=== PATIENT | female | born 1960 | race American Indian/Alaskan Native ===

== ENCOUNTER 2017-12-17 10:16 | Emergency (ER) | payer MEDICAID ==
[2017-12-17 10:22] VITALS: BMI 32.1
--- NOTE | 2017-12-17 11:09 | ED PDOC ---
HPI: Female Pain Time Seen by Provider: 12/17/17 10:27 Chief Complaint (Nursing): Abdominal Pain Chief Complaint (Provider): Right flank pain, urinary symptoms History Per: Patient History/Exam Limitations: no limitations Onset/Duration Of Symptoms: Days Current Symptoms Are (Timing): Still Present Quality Of Discomfort: "Pain" Associated Symptoms: Back Pain (radiating from flank), Urinary Symptoms Additional Complaint(s): 57yo female with history of hepatitis C, alcoholic liver cirrhosis, HIV ( compliant with mediations), presents to ED with complaints of right sided flank pain for the past 2 days. She states the pain radiates to her back, is constant and associated with frequency and dysuria. She denies any fever, chills, vomiting, diarrhea, hematuria. She has been taking Advil for her symptoms with mild relief. PCP: Pinky Hall Abnormal Vaginal Bleeding: No Past Medical History Reviewed: Historical Data, Nursing Documentation, Vital Signs Vital Signs: Last Vital Signs Temp 97.3 F L 12/17/17 10:21 Pulse 85 12/17/17 10:21 Resp 16 12/17/17 10:21 BP 154/92 H 12/17/17 10:21 Pulse Ox 97 12/17/17 10:21 - Medical History PMH: Anxiety, Asthma (taking inhalers), Bronchitis, COPD, Depression, HIV, HTN, Pneumonia, Schizophrenia Denies: Diabetes, Hepatitis, Chronic Kidney Disease, Seizures, Sexually Transmitted Disease - Surgical History Surgical History: - Family History Family History: States: Unknown Family Hx - Immunization History Hx Tetanus Toxoid Vaccination: No Hx Influenza Vaccination: No Hx Pneumococcal Vaccination: No - Home Medications Home Medications: Ambulatory Orders Medication Instructions Recorded Paliperidone Palmitate [Invega 156 mg INJ Q30D 04/03/15 Sustenna] Benztropine [Cogentin] 1 mg PO BID #60 tab 04/20/15 Darunavir [Prezista] 800 mg PO DAILY #30 tab 04/20/15 Hydrochlorothiazide [HCTZ] 25 mg PO DAILY #30 tablet 04/20/15 Lisinopril [Zestril] 40 mg PO DAILY #30 tab 04/20/15 Mirtazapine [Remeron] 15 mg PO HS #30 tab 04/20/15 QUEtiapine [SEROquel] 50 mg PO DAILY #0 tab 04/20/15 QUEtiapine [SEROquel] 150 mg PO HS #120 tab 04/20/15 Raltegravir Potassium [Isentress] 400 mg PO BID #60 tab 04/20/15 Ritonavir [Norvir] 100 mg PO DAILY #30 tab 04/20/15 Salmeterol Xinafoate/Fluticaso 2 puff IH RBID #0 inhaler 04/20/15 [Advair Hfa 230-21] cloNIDine [Catapres] 0.2 mg PO BID #60 tab 04/20/15 hydrALAZINE [Apresoline] 10 mg PO TID #90 tab 04/20/15 Ciprofloxacin HCl [Cipro] 500 mg PO BID #14 tablet 12/17/17 - Allergies Allergies/Adverse Reactions: Allergies Allergy/AdvReac Type Severity Reaction Status Date / Time crab Allergy SWELLING Verified 12/17/17 10:32 Review of Systems ROS Statement: Except As Marked, All Systems Reviewed And Found Negative Constitutional: Negative for: Fever, Chills Gastrointestinal: Positive for: Abdominal Pain (right flank pain). Negative for : Nausea, Vomiting, Diarrhea Genitourinary Female: Positive for: Dysuria, Frequency. Negative for: Hematuria Physical Exam - Reviewed Nursing Documentation Reviewed: Yes Vital Signs Reviewed: Yes - Physical Exam Appears: Positive for: Non-toxic, No Acute Distress Head Exam: Positive for: ATRAUMATIC, NORMAL INSPECTION, NORMOCEPHALIC Skin: Positive for: Normal Color Eye Exam: Positive for: Normal appearance Neck: Positive for: Supple Cardiovascular/Chest: Positive for: Regular Rate, Rhythm Respiratory: Positive for: Normal Breath Sounds. Negative for: Wheezing Gastrointestinal/Abdominal: Positive for: Normal Exam, Soft. Negative for: Tenderness Back: Positive for: Normal Inspection. Negative for: R CVA Tenderness Extremity: Positive for: Normal ROM. Negative for: Deformity Neurologic/Psych: Positive for: Alert, Oriented. Negative for: Motor/Sensory Deficits - Laboratory Results Result Diagrams: 12/17/17 11:10 12/17/17 12:54 - ECG O2 Sat by Pulse Oximetry: 97 (RA) Pulse Ox Interpretation: Normal - Progress Re-evaluation Time: 14:30 Condition: Re-examined, Improved Medical Decision Making Medical Decision Making: Impression: Flank pain with dysuria Differential: UTI, Pyelonephritis, kidney stones; other conditions considered but not listed Plan: -- Labs -- Urinalysis -- Toradol 30 mg IV -- CT Adomen & Pelvis with IV Contrast Time: 1300 CT Abdomen and Pelvis FINDINGS: LOWER THORAX: Evaluation of the lung bases reveals evidence of mild subsegmental atelectasis or scarring at the left lung base and a small amount at the right lung base. Stable calcified right subpleural pulmonary granuloma is identified in the right lower lobe. No pleural effusion is seen. Heart is enlarged. Distal esophagus is unremarkable except for small hiatal hernia. Visualized stomach is within normal limits. LIVER: Noncontrast images of the liver show no evidence of focal liver mass or intrahepatic ductal dilatation. No significant nodularity of the liver surface is clearly noted. GALLBLADDER AND BILE DUCTS: Unremarkable. PANCREAS: Unremarkable. No gross lesion or ductal dilatation. SPLEEN: Unremarkable. ADRENALS: Unremarkable. No mass. KIDNEYS AND URETERS: Noncontrast evaluation of the kidneys reveals no evidence of perinephric change or hydronephrosis. A few possible tiny subtle nonobstructing right renal calculi are suspected. No ureteral calculus or significant ureteral dilatation is noted. VASCULATURE: Unremarkable. No aortic aneurysm. BOWEL: Unremarkable. No obstruction. No gross mural thickening. Visualized duodenum and small bowel are unremarkable. No small bowel dilatation or small bowel obstruction is noted. Areas of residual fecal material are seen throughout the colon suggestive of constipation. Terminal ileum is unremarkable. APPENDIX: Unremarkable. Normal appendix. PERITONEUM: Unremarkable. No free fluid. No free air. LYMPH NODES: Unremarkable. No enlarged lymph nodes. BLADDER: Unremarkable. REPRODUCTIVE: Unremarkable. BONES: Mild degenerative changes are seen in the spine. Bony pelvis is unchanged and unremarkable except for some minor degenerative changes in the hips. OTHER FINDINGS: No inguinal hernias are seen. IMPRESSION: No evidence of obstructive uropathy. No evidence of ureteral dilatation, perinephric change, or hydronephrosis. A few possible tiny subtle nonobstructing renal calculi are not excluded in the right kidney. Time: 1438 Patient reports feeling much better, able to tolerate PO intake. Stable for discharge home, diagnosis of UTI, abdominal pain. Scribe Attestation: Documented by Cary Roberson acting as a scribe for Ela Martinez MD. Provider Attestation: All medical record entries made by the Scribe were at my direction and personally dictated by me. I have reviewed the chart and agree that the record accurately reflects my personal performance of the history, physical exam, medical decision making, and the department course for this patient. I have also personally directed, reviewed, and agree with the discharge instructions and disposition. Disposition - Clinical Impression Clinical Impression: Abdominal pain, UTI (urinary tract infection) - Patient ED Disposition Is Patient to be Admitted: No Counseled Patient/Family Regarding: Studies Performed, Diagnosis, Need For Followup - Disposition [facility]errals[facility]] Disposition: Routine/Home Disposition Time: 14:40 Condition: GOOD Additional Instructions: Follow up with your PCP in 2-3 days. Take your medications as instructed. Prescriptions: Ciprofloxacin HCl [Cipro] 500 mg PO BID #14 tablet Instructions: Urinary Tract Infections in Adults, Flank Pain (DC)
[2017-12-17 11:26] LABS: BASO % 0.6 % (0.0-2.0); EOS # 0.3 K/uL (0.0-0.7); EOS % 4.2 % (0.0-4.0); HEMOGLOBIN 13.2 g/dL (12.0-16.0); LYMPH # 1.7 K/uL (1.0-4.3); LYMPH % 28.8 % (20.0-40.0); MEAN CELL VOLUME 93.4 fl (81.0-99.0); MEAN CORPUSCULAR HEMOGLOBIN 31.5 pg (27.0-31.0); MEAN CORPUSCULAR HGB CONC 33.7 g/dL (33.0-37.0); MEAN PLATELET VOLUME 8.7 fl (7.2-11.7); MONO # 0.5 K/uL (0.0-0.8); MONO % 8.1 % (0.0-10.0); NEUT # 3.5 K/uL (1.8-7.0); NEUT % 58.3 % (50.0-75.0); NRBC % 0.1 % (0.0-0.0); RBC 4.19 Mil/uL (3.80-5.20); RED CELL DISTRIBUTION WIDTH 13.9 % (11.5-14.5)
--- NOTE | 2017-12-17 12:47 | CT ---
PROCEDURE: CT Abdomen and Pelvis without intravenous contrast HISTORY: right flank pain COMPARISON: None. TECHNIQUE: Technique. Contrast Dose: No contrast administered Radiation dose: Total exam DLP = Total exam DLP = 1560 mGy-cm. This CT exam was performed using one or more of the following dose reduction techniques: Automated exposure control, adjustment of the mA and/or kV according to patient size, and/or use of iterative reconstruction technique. FINDINGS: LOWER THORAX: Evaluation of the lung bases reveals evidence of mild subsegmental atelectasis or scarring at the left lung base and a small amount at the right lung base. Stable calcified right subpleural pulmonary granuloma is identified in the right lower lobe. No pleural effusion is seen. Heart is enlarged. Distal esophagus is unremarkable except for small hiatal hernia. Visualized stomach is within normal limits. LIVER: Noncontrast images of the liver show no evidence of focal liver mass or intrahepatic ductal dilatation. No significant nodularity of the liver surface is clearly noted. GALLBLADDER AND BILE DUCTS: Unremarkable. PANCREAS: Unremarkable. No gross lesion or ductal dilatation. SPLEEN: Unremarkable. ADRENALS: Unremarkable. No mass. KIDNEYS AND URETERS: Noncontrast evaluation of the kidneys reveals no evidence of perinephric change or hydronephrosis. A few possible tiny subtle nonobstructing right renal calculi are suspected. No ureteral calculus or significant ureteral dilatation is noted. VASCULATURE: Unremarkable. No aortic aneurysm. BOWEL: Unremarkable. No obstruction. No gross mural thickening. Visualized duodenum and small bowel are unremarkable. No small bowel dilatation or small bowel obstruction is noted. Areas of residual fecal material are seen throughout the colon suggestive of constipation. Terminal ileum is unremarkable. APPENDIX: Unremarkable. Normal appendix. PERITONEUM: Unremarkable. No free fluid. No free air. LYMPH NODES: Unremarkable. No enlarged lymph nodes. BLADDER: Unremarkable. REPRODUCTIVE: Unremarkable. BONES: Mild degenerative changes are seen in the spine. Bony pelvis is unchanged and unremarkable except for some minor degenerative changes in the hips. OTHER FINDINGS: No inguinal hernias are seen. IMPRESSION: No evidence of obstructive uropathy. No evidence of ureteral dilatation, perinephric change, or hydronephrosis. A few possible tiny subtle nonobstructing renal calculi are not excluded in the right kidney.
[2017-12-17 12:53] LABS: URINE BACTERIA FEW (<OCC); URINE BILIRUBIN NEGATIVE (NEGATIVE); URINE BLOOD NEGATIVE (NEGATIVE); URINE CLARITY CLEAR (Clear); URINE COLOR YELLOW (YELLOW); URINE GLUCOSE (UA) NEG (Normal); URINE LEUKOCYTE ESTERASE NEG Leu/uL (Negative); URINE PROTEIN NEGATIVE (NEGATIVE); URINE UROBILINOGEN 0.2-1.0 mg/dL (0.2-1.0)
[2017-12-17 12:54] LABS: SQUAMOUS EPITHIAL 1 /hpf (0-5)
[2017-12-17 13:37] LABS: ALBUMIN 3.6 g/dL (3.5-5.0); ALT/SGPT 93 U/L (9-52); AST/SGOT 142 U/L (14-36); BLOOD UREA NITROGEN 12 mg/dl (7-17); CALCIUM 9.7 mg/dL (8.4-10.2); GFR AFRICAN-AMERICAN > 60; GFR NON-AFRICAN AMERICAN > 60
[2017-12-17 14:53] VITALS: BP 160/91; PULSE 89; RESP 18; TEMP 98
[2017-12-20 16:25] VITALS: O2SAT 97
== END 2017-12-17 14:45 | disposition home or self-care (01) ==
LOC: H.ER 10:16
DX: N39.0 Urinary tract infection, site not specified (principal); I10 Essential (primary) hypertension; Z86.59 Personal history of other mental and behavioral disorders
CPT/HCPCS: 74176; 80053; 81003; 85025; 96372; 99284; J1885

== ENCOUNTER 2018-03-16 14:35 | Observation (INO) | payer MEDICAID ==
[2018-03-16 14:35] VITALS: BMI 32.1
--- NOTE | 2018-03-16 15:12 | CT ---
PROCEDURE: CT HEAD WITHOUT CONTRAST. HISTORY: code stroke COMPARISON: 04/03/2015. TECHNIQUE: Axial computed tomography images were obtained through the head/brain without intravenous contrast. Radiation dose: Total exam DLP = 800.61 mGy-cm. This CT exam was performed using one or more of the following dose reduction techniques: Automated exposure control, adjustment of the mA and/or kV according to patient size, and/or use of iterative reconstruction technique. FINDINGS: HEMORRHAGE: No intracranial hemorrhage. BRAIN: There are mild chronic microangiopathic changes. There is no mass, mass effect or abnormal extra-axial fluid collection. VENTRICLES: There is mild age-related global parenchymal volume loss and proportionate enlargement of the ventricles and cortical sulci. CALVARIUM: The skull base and calvarium are normal. PARANASAL SINUSES: Predominantly clear. MASTOID AIR CELLS: Predominantly clear. OTHER FINDINGS: None. IMPRESSION: No acute intracranial abnormality. If there is a persistent focal neurologic deficit and an ongoing clinical concern for acute infarction, an MRI of the brain without intravenous contrast would be a more sensitive modality for evaluation of hyperacute/acute ischemic infarction. Age-related involutional changes. Important findings were discussed with Dr. Eliseo Ba in the ER on 03/16/2018 at 3:08 p.m.
--- NOTE | 2018-03-16 15:31 | CT ---
PROCEDURE: CT Cervical Spine without contrast HISTORY: fall neck/ head trauma COMPARISON: None available. TECHNIQUE: Axial computed tomography images were obtained of the cervical spine without the use of intravenous contrast. Coronal and sagittal reformatted images were created and reviewed. Radiation dose: Total exam DLP = 612.74 mGy-cm. This CT exam was performed using one or more of the following dose reduction techniques: Automated exposure control, adjustment of the mA and/or kV according to patient size, and/or use of iterative reconstruction technique. FINDINGS: VERTEBRAE: There is reversal of normal cervical lordosis with moderate cervical kyphosis centered at C4-5 and C5-6. There is normal alignment of cervical vertebral bodies. There is no acute fracture or traumatic anterior listhesis. Bone mineralization is normal. The craniocervical junction is normal. The atlantoaxial joint is normal. DISCS/SPINAL CANAL/NEURAL FORAMINA: There is multilevel degenerative disc disease due to combination of disc osteophyte complexes, uncovertebral joint hypertrophy and multilevel facet arthropathy, worse at C4-5 with broad-based central disc protrusion and mild spinal canal stenosis. Uncovertebral joint hypertrophy in conjunction with mild facet arthropathy contribute to moderate right and severe left neural foraminal narrowing. PARASPINAL SOFT TISSUES: Unremarkable. OTHER FINDINGS: None. IMPRESSION: No acute fracture or traumatic anterolisthesis. Moderate cervical kyphosis and multilevel degenerative disc disease, worse at C4-5 with mild spinal canal stenosis and severe left neural foraminal narrowing.
--- NOTE | 2018-03-16 15:57 | RAD ---
HISTORY: Code Stroke COMPARISON: 04/03/2015. FINDINGS: LUNGS: The lungs are well inflated and clear. PLEURA: No significant pleural effusion identified, no pneumothorax apparent. CARDIOVASCULAR: Normal. OSSEOUS STRUCTURES: No significant abnormalities. VISUALIZED UPPER ABDOMEN: Normal. OTHER FINDINGS: None. IMPRESSION: No active pulmonary disease.
[2018-03-16] MEDS: Sodium Chloride 0.9% 1,000 ML IV SCH (16:07)
[2018-03-16 16:27] LABS: BASO % 0.4 % (0.0-2.0); EOS # 0.2 K/uL (0.0-0.7); EOS % 3.2 % (0.0-4.0); HEMOGLOBIN 12.1 g/dL (12.0-16.0); LYMPH # 2.3 K/uL (1.0-4.3); LYMPH % 39.5 % (20.0-40.0); MEAN CELL VOLUME 94.2 fl (81.0-99.0); MEAN CORPUSCULAR HEMOGLOBIN 31.2 pg (27.0-31.0); MEAN CORPUSCULAR HGB CONC 33.1 g/dL (33.0-37.0); MEAN PLATELET VOLUME 7.8 fl (7.2-11.7); MONO # 0.5 K/uL (0.0-0.8); MONO % 9.4 % (0.0-10.0); NEUT # 2.8 K/uL (1.8-7.0); NEUT % 47.5 % (50.0-75.0); NRBC % 0.1 % (0.0-0.0); RBC 3.87 Mil/uL (3.80-5.20); RED CELL DISTRIBUTION WIDTH 13.7 % (11.5-14.5); WHITE BLOOD COUNT 5.8 K/uL (4.8-10.8)
[2018-03-16 16:37] LABS: ALB/GLOB RATIO 0.9 (1.0-2.1); ALBUMIN 3.7 g/dL (3.5-5.0); ALT/SGPT 50 U/L (9-52); AST/SGOT 52 U/L (14-36); BLOOD UREA NITROGEN 17 mg/dl (7-17); CALCIUM 10.5 mg/dL (8.4-10.2); GFR AFRICAN-AMERICAN > 60; GFR NON-AFRICAN AMERICAN > 60; HDL CHOLESTEROL 52 MG/DL (30-70)
[2018-03-16 16:39] LABS: INR 0.9 (0.9-1.2); PARTIAL THROMBOPLASTIN TIME 34.6 Seconds (25.6-37.1); PROTHROMBIN TIME 10.4 Seconds (9.8-13.1)
[2018-03-16 16:49] LABS: LDL CHOLESTEROL 56 mg/dL (0-129)
[2018-03-16 16:50] LABS: BARBITURATES, UR NEGATIVE (NEGATIVE); BENZODIAZEPINES, UR POSITIVE (NEGATIVE); OPIATES, UR POSITIVE (NEGATIVE); PHENCYCLIDINE, UR NEGATIVE (NEGATIVE)
--- NOTE | 2018-03-16 18:48 | RAD ---
PROCEDURE: Pelvis-right hip HISTORY: fall COMPARISON: None TECHNIQUE: Standard protocol for this study/examination. FINDINGS: There are no osseous abnormalities to suggest fracture. The pelvic ring is intact. Preserved femoral-acetabular relationship. Negative study for protrusio, subluxation or dislocation. Degenerative changes: None IMPRESSION: No acute findings related to/accounting for the clinical presentation.
--- NOTE | 2018-03-16 20:55 | ED PDOC ---
HPI:STROKE - Time Time: 14:50 - Historian Historian: Patient - Chief Complaint Chief Complaint: Slurred speech, Facial droop - Onset Date: 03/16/18 (unknown time) Onset: Gradual - Timing Timing: Currently Symptomatic - Location Location: Speech Locate right:: Face - Severity of pain Maximum severity:: Moderate Severity Current: Moderate - Exacerbated by Exacerbated by:: Nothing - Relieved by Relieved by:: Nothing - TPA Positive for Contraindication: Yes Reason tPA is not being Administered: unknown time onset, possible opioid intoxication - Notes: Notes:: 58yo female sent from [facility] for dysarthria, facial asymmetry, she reports she fell in the shower this morning. Admit to smoking heroin yesterday. Denies weakness or numbness to arms or legs. Admits to slurred speech but she is unsure of onset- possibly this morning. Denies headache. NIHSS Stroke Scale - Date/Time Evaluation Performed Date Performed: 03/16/18 Time Performed: 14:51 When Was NIHSS Performed: Baseline - How Severe is the Stroke Level of Consciousness: 0=Alert LOC to Questions: 0=Both comments correct LOC to commands: 1=Obeys one correctly Best Gaze: 0=Normal Visual: 0=No visual loss Facial: 1=Minor asymmetry Motor Arm - Left: 0=No drift Motor Arm - Right: 0=No drift Motor Leg - Left: 0=No drift Motor Leg - Right: 0=No drift Limb Ataxia: 0=Absent Sensory: 0=Normal Best Language: 0=No aphasia Dysarthia: 1=Mild to moderate slurring Extinction & Inattention (Neglect): 0=Normal, no object Score: 3 rTPA Inclusion/Exclusion - Refusal of Treatment Patient Refused Treatment: No - Inclusion Criteria for Altepase Patient is 18 years or Older: Yes The Clinical Diagnosis of Ischemic Stroke That is Causing a Potentially Disabling Neurological Deficit: Yes Time of Onset is Well Established to be Less Than 270 Minute Before Treatment Would Begin: No Risk/Benefit Discussed With Patient/Family Member Present: No - Warning to TPA With Conditions Condition: Stroke Serevity Too Mild, Rapid Improvement, Care Team Unable to Determine Eligibilty (possible opioid abuse) Past Medical History Vital Signs: Last Vital Signs Temp 98.4 F 03/16/18 14:39 Pulse 70 03/16/18 15:30 Resp 18 06/14/18 15:30 BP 138/75 03/16/18 15:30 Pulse Ox 97 03/16/18 15:30 - Medical History PMH: Anxiety, Asthma (taking inhalers), Bronchitis, COPD, Depression, HIV, HTN, Pneumonia, Schizophrenia Denies: Diabetes, Hepatitis, Chronic Kidney Disease, Seizures, Sexually Transmitted Disease - Surgical History Surgical History: - Family History Family History: States: Unknown Family Hx - Immunization History Hx Tetanus Toxoid Vaccination: No Hx Influenza Vaccination: No Hx Pneumococcal Vaccination: No - Home Medications Home Medications: Ambulatory Orders Medication Instructions Recorded Albuterol Sulfate [Ventolin Hfa] 2 puff IH Q4 PRN 03/16/18 Alprazolam [Xanax] 2 mg PO Q8 PRN 03/16/18 Cyclobenzaprine [Flexeril] 10 mg PO HS PRN 03/16/18 Darunavir [Prezista] 800 mg PO DAILY 03/16/18 Paliperidone Palmitate [Invega 156 mg IM Q30D 03/16/18 Sustenna] Raltegravir Potassium [Isentress] 400 mg PO Q12 03/16/18 Ritonavir [Norvir] 100 mg PO DAILY 03/16/18 amLODIPine [Norvasc] 10 mg PO DAILY 03/16/18 cloNIDine [Catapres] 0.1 mg PO Q8 03/16/18 - Allergies Allergies/Adverse Reactions: Allergies Allergy/AdvReac Type Severity Reaction Status Date / Time crab Allergy SWELLING Verified 03/16/18 14:42 Review of Systems Constitutional: Negative for: Fever ENT: Negative for: Throat Pain Cardiovascular: Negative for: Chest Pain Respiratory: Negative for: Cough Gastrointestinal: Negative for: Nausea Genitourinary Female: Negative for: Dysuria Musculoskeletal: Negative for: Neck Pain Skin: Negative for: Rash Neurological: Positive for: Dizziness, Other (slurred speech). Negative for: Weakness, Numbness, Altered Mental Status, Headache Physical Exam - Reviewed Nursing Documentation Reviewed: Yes Vital Signs Reviewed: Yes - Physical Exam Appears: Positive for: Well, Non-toxic, No Acute Distress Head Exam: Positive for: ATRAUMATIC, NORMAL INSPECTION, NORMOCEPHALIC Skin: Positive for: Normal Color, Warm, DRY Eye Exam: Positive for: EOMI, Normal appearance, PERRL ENT: Positive for: Normal ENT Inspection, Other (loss nasolabial fold L, ptosis) Neck: Positive for: Normal, Painless ROM Cardiovascular/Chest: Positive for: Regular Rate, Rhythm Respiratory: Positive for: CNT, Normal Breath Sounds Gastrointestinal/Abdominal: Positive for: Normal Exam, Soft. 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 Negative for: Motor/Sensory Deficits - Laboratory Results Result Diagrams: 03/16/18 15:45 03/16/18 15:45 - ECG ECG: Positive for: Interpreted By Me ECG Rhythm: Positive for: Normal ST Segment, Sinus Rhythm. Negative for: ST/T Changes Rate: 79 O2 Sat by Pulse Oximetry: 97 Pulse Ox Interpretation: Normal Medical Decision Making Medical Decision Making: Code stroke initiated although not candidate for acute TPA or intervention as possible opioid intoxication contributing to dysartrhia, unable to give informed consent. CT brain and labs reviewed. Admit to FP service. ASA ordered. D/w Dr Najera and Dr Guillen PMD. Disposition - Clinical Impression Clinical Impression: Narcotic abuse, Dysarthria, Facial weakness, HIV (human immunodeficiency virus infection) - Patient ED Disposition Is Patient to be Admitted: Yes - Disposition Disposition Time: 18:05 Condition: STABLE - Pt Status Changed To: Hospital Disposition Of: Observation - POA Present On Arrival: None
[2018-03-16] MEDS ORDERED: Albuterol HFA 90 mcg/actuation (8 g) IH PRN (22:53)
[2018-03-16] MEDS ORDERED: Paliperidone 156 mg/1 ml Syringe IM SCH (23:00)
--- NOTE | 2018-03-17 00:03 | CP.PCM.HP ---
History of Present Illness - History of Present Illness History of Present Illness: 58 yr old F presented to ED with complaint of facial droop and "couldn't walk". Patient reports left facial droop has been present x 1 month and difficulty walking occurred x 1 day. Patient also reported a fall in her home, slipped on soap and hurt her right hip. Denies head trauma or LOC. PMHx includes HIV, Chronic Hep C, HTN, COPD, Polysubstance abuse ( tobacco, heroin-intranasal), Paranoid Schizophrenia. In ED patient repored last use of heroin was yesterday ( intranasally). Denies difficulty swallowing, nausea, vomiting, chest pain, visual changes. Is tolerating PO fluids and solids. Patient reports she was due for her Invega Sustenna injection today but was not able to obtain it at her pharmacy. PMD: [facility] PMHx: HIV, Chronic Hep C, HTN, Mild Persistant Asthma, Polysubstance abuse ( tobacco, heroin-intranasal), Paranoid Schizophrenia SurgHx: left leg fracture repair 05/2015, right wrist fracture repair 06/2015, c- section x 2 FMHx: noncontributory SocHx: tobacco abuse (reports 10 cig daily), occasional Etoh, heroin abuse ( last use yesterday-intranasal) Medications: Amlodipine 10mg PO QD, Clonidine 0.1 mg PO Q8, Xanax 2mg PO Q8, Invega Sustenna 156mg IM Q30D, Darunavir 800mg PO QD, Raltegravir 400mg PO Q12, Ritonavir 100mg PO QD, Albuterol sulfate 90 mcg per act 2 puffs Q4 PRN SOB, Advair Diskus 500-50 1 puff BID Allergies: NKDA ED course: NIH score 3 -CT head w/o contrast: no acute ICH, no acute intracranial abnormality -EKG: NSR at rate of 79 bpm -BP 136/85 mmHg, HR 78, Resp 19, O2 98% on room air, Temp 98.4 F -CBC normal -PT/PTT and INR normal -CMP: K+ 3.5, Calcium 10.5, AST 52, rest within normal limits -troponin: < 0.0120 -ED treatment: Aspirin 325mg PO once, 1L NS IV bolus, Neuro consult: Dr. Leonard Present on Admission - Present on Admission Any Indicators Present on Admission: No History of DVT/PE: No History of Uncontrolled Diabetes: No Urinary Catheter: No Decubitus Ulcer Present: No History Surgical Site Infection Following: None Review of Systems - Constitutional Constitutional: absent: Chills - EENT Eyes: absent: Blurred Vision, Change in Vision Ears: absent: Dizziness Nose/Mouth/Throat: absent: Nasal Congestion, Nasal Discharge, Neck Pain - Cardiovascular Cardiovascular: absent: Chest Pain, Dyspnea - Respiratory Respiratory: absent: Cough, Hemoptysis - Gastrointestinal Gastrointestinal: absent: Abdominal Pain, Nausea, Vomiting - Genitourinary Genitourinary: absent: Change in Urinary Stream, Difficulty Urinating, Dysuria - Musculoskeletal Musculoskeletal: Abnormal Gait - Integumentary Integumentary: absent: Bleeding Lesions - Neurological Neurological: Abnormal Speech, Weakness (and difficulty walking) - Psychiatric Psychiatric: absent: Homicidal Ideation, Suicidal Ideation - Hematologic/Lymphatic Hematologic: absent: Easy Bleeding, Easy Bruising Past Patient History - Infectious Disease Hx of Infectious Diseases: None - Past Medical History & Family History Past Medical History?: Yes - Past Social History Smoking Status: Light Smoker < 10 Cigarettes Daily - CARDIAC Hx Cardiac Disorders: Yes - PULMONARY Hx Respiratory Disorders: Yes - NEUROLOGICAL Hx Neurological Disorder: Yes - HEENT Hx HEENT Problems: No - RENAL Hx Chronic Kidney Disease: No - ENDOCRINE/METABOLIC Hx Endocrine Disorders: No - HEMATOLOGICAL/ONCOLOGICAL Hx Blood Disorders: Yes - INTEGUMENTARY Hx Dermatological Problems: No - MUSCULOSKELETAL/RHEUMATOLOGICAL Hx Musculoskeletal Disorders: No - GASTROINTESTINAL Hx Gastrointestinal Disorders: No - GENITOURINARY/GYNECOLOGICAL Hx Genitourinary Disorders: No - PSYCHIATRIC Hx Psychophysiologic Disorder: Yes - SURGICAL HISTORY Hx Surgeries: No Hx Section: Yes (x2) - ANESTHESIA Hx Anesthesia: Yes Hx Anesthesia Reactions: No Hx Malignant Hyperthermia: No Meds Allergies/Adverse Reactions: Allergies Allergy/AdvReac Type Severity Reaction Status Date / Time crab Allergy SWELLING Verified 03/16/18 14:42 Physical Exam - Constitutional Appears: No Acute Distress - Head Exam Head Exam: ATRAUMATIC Additional comments: left facial droop - Eye Exam Eye Exam: EOMI Pupil Exam: Miosis (bilaterally) - ENT Exam ENT Exam: Mucous Membranes Moist - Neck Exam Neck exam: Positive for: Full Rom. Negative for: Lymphadenopathy - Respiratory Exam Respiratory Exam: Clear to Auscultation Bilateral, NORMAL BREATHING PATTERN. absent: Rales, Rhonchi - Cardiovascular Exam Cardiovascular Exam: REGULAR RHYTHM, +S1, +S2 - GI/Abdominal Exam GI & Abdominal Exam: Normal Bowel Sounds, Soft (obese). absent: Distended, Guarding - Extremities Exam Extremities exam: Positive for: full ROM (strength 5/5 in bilateral upper and lower extremities, patient able to move up in the stretcher using all limbs). Negative for: calf tenderness, pedal edema - Back Exam Back exam: absent: CVA tenderness (L), CVA tenderness (R) - Neurological Exam Neurological exam: Alert, Oriented x3 Additional comments: NIH score 2 (mild dysrthria, mild left facial droop) - Psychiatric Exam Psychiatric exam: Flat Affect, Normal Mood Additional comments: denies suicidal or homicidal ideation - Skin Skin Exam: Dry, Normal Color, Warm Results - Vital Signs Recent Vital Signs: Last Vital Signs Temp 97.5 F L 03/16/18 23:48 Pulse 77 03/16/18 23:48 Resp 18 03/16/18 23:48 BP 130/81 03/16/18 23:48 Pulse Ox 94 L 03/16/18 23:48 - Labs Result Diagrams: 03/16/18 15:45 03/16/18 15:45 Labs: Laboratory Results - last 24 hr 03/16/18 03/16/18 03/16/18 15:45 15:45 15:45 WBC 5.8 RBC 3.87 Hgb 12.1 Hct 36.5 MCV 94.2 MCH 31.2 H MCHC 33.1 RDW 13.7 Plt Count 149 MPV 7.8 Neut % (Auto) 47.5 L Lymph % (Auto) 39.5 [place] % (Auto) 9.4 Eos % (Auto) 3.2 Baso % (Auto) 0.4 Neut # (Auto) 2.8 Lymph # (Auto) 2.3 [place] # (Auto) 0.5 Eos # (Auto) 0.2 Baso # (Auto) 0.0 PT INR APTT Sodium 140 Potassium 3.5 L Chloride 104 Carbon Dioxide 30 Anion Gap 10 BUN 17 Creatinine 0.8 Est GFR ( Amer) > 60 Est GFR (Non-Af Amer) > 60 Random Glucose 97 Hemoglobin A1c 5.6 Calcium 10.5 H Total Bilirubin 0.7 AST 52 H D ALT 50 Alkaline Phosphatase 106 Troponin I < 0.0120 Total Protein 7.6 Albumin 3.7 Globulin 3.9 Albumin/Globulin Ratio 0.9 L Triglycerides 185 H Cholesterol 158 LDL Cholesterol Direct 56 HDL Cholesterol 52 Urine Opiates Screen Urine Methadone Screen Ur Barbiturates Screen Ur Phencyclidine Scrn Ur Amphetamines Screen U Benzodiazepines Scrn U Oth Cocaine Metabols U Cannabinoids Screen Alcohol, Quantitative < 10 Blood Type Antibody Screen BBK History Checked 03/16/18 03/16/18 03/16/18 15:45 15:45 16:10 WBC RBC Hgb Hct MCV MCH MCHC RDW Plt Count MPV Neut % (Auto) Lymph % (Auto) [place] % (Auto) Eos % (Auto) Baso % (Auto) Neut # (Auto) Lymph # (Auto) [place] # (Auto) Eos # (Auto) Baso # (Auto) PT 10.4 INR 0.9 APTT 34.6 Sodium Potassium Chloride Carbon Dioxide Anion Gap BUN Creatinine Est GFR ( Amer) Est GFR (Non-Af Amer) Random Glucose Hemoglobin A1c Calcium Total Bilirubin AST ALT Alkaline Phosphatase Troponin I Total Protein Albumin Globulin Albumin/Globulin Ratio Triglycerides Cholesterol LDL Cholesterol Direct HDL Cholesterol Urine Opiates Screen Positive H Urine Methadone Screen Negative Ur Barbiturates Screen Negative Ur Phencyclidine Scrn Negative Ur Amphetamines Screen Negative U Benzodiazepines Scrn Positive U Oth Cocaine Metabols Negative U Cannabinoids Screen Positive H Alcohol, Quantitative Blood Type O POSITIVE Antibody Screen Negative BBK History Checked No verified bt Assessment & Plan - Assessment and Plan (Free Text) Assessment: 58 yr old F admitted for TIA with PMHx including HIV, Chronic Hep C, HTN, Mild Persistant Asthma, Polysubstance abuse ( tobacco, heroin-intranasal), Paranoid Schizophrenia 1. TIA -per patient, facial droop present 1 month -CT head w/o contrast: no acute ICH, no acute intracranial abnormality -NIH score in ED 3, repeat NIH score 2 -patient not candidate for TPA: hx heroin abuse (last use yesterday-intranasal) -Aspirin 325mg PO once give in ED -Admit to telemetry -aspirin 81mg PO QD -neurology consult appreciated: will follow recommendations 2. HTN -chronic, controlled -continue home medications: Amlodipine 10mg PO QD, Clonidine 0.1 mg PO Q8 -monitor BP 3. Schizophrenia/Psychosis/Depression -chronic, controlled -continue home medications: Xanax 2mg PO Q8, Invega Sustenna 156mg IM Q30D 4. Asymptomatic HIV -chronic, controlled -CD4: 448 on 01/04/18 -continue home medications: Darunavir 800mg PO QD, Raltegravir 400mg PO Q12, Ritonavir 100mg PO QD 5. Mild Persistent Asthma -chronic, controlled -continue home medications: Albuterol sulfate 90 mcg per act 2 puffs Q4 PRN SOB , Advair Diskus 500-50 1 puff BID 6. DVT prophylaxis -Lovenox 30mg SC QD - Date & Time Date: 03/17/18 Time: 00:05
[2018-03-17] MEDS: Sodium Chloride 0.9% 1,000 ML IV SCH (00:35)
[2018-03-17] MEDS ORDERED: Paliperidone 156 mg/1 ml Syringe IM ONE (07:58)
[2018-03-17 07:59] VITALS: RESP 20
[2018-03-17] MEDS ORDERED: Enoxaparin 30 mg Syringe SC SCH (09:00)
[2018-03-17] MEDS ORDERED: Enoxaparin 40 mg Syringe SC SCH (09:00)
--- NOTE | 2018-03-17 11:05 | CARD ---
APPROVED REPORT EKG Measurement Heart [id number] <Conclusion> Normal sinus rhythm Normal ECG
--- NOTE | 2018-03-17 11:26 | MRI ---
PROCEDURE: MRI BRAIN WITHOUT CONTRAST HISTORY: r/o TIA, hx HIV COMPARISON: None. TECHNIQUE: Multiplanar, multisequence MR images of the brain were obtained without intravenous contrast enhancement. FINDINGS: HEMORRHAGE: None DWI: No evidence of an acute or early subacute infarction. BRAIN PARENCHYMA: Chronic microangiopathy is reiterated the current examination in subcortical and periventricular white matter diffusely throughout the cerebrum. There is no mass effect. Sulcal and cisternal spaces remain normal and there is no suspicious extra-axial fluid collection appreciated the posterior fossa contents appear unremarkable as well as the midline brain anatomy, with the exception of dense falcine calcification anteriorly. VENTRICLES: Unremarkable. No hydrocephalus. CRANIUM: Unremarkable. ORBITS: Grossly unremarkable. PARANASAL SINUSES/MASTOIDS: Mild multifocal ethmoid sinusitis noted bilaterally. VASCULAR SYSTEM: Skull base flow voids intact. OTHER FINDINGS: None. IMPRESSION: No acute or subacute brain infarction, mass effect or suspicious extra-axial fluid collection identified. Examination appears stable in the interval including chronic microangiopathy pattern at the bilateral cerebral hemispheres.
--- NOTE | 2018-03-17 14:09 | CP.PCM.CON ---
History of Present Illness - History of Present Illness History of Present Illness: Neurology Consultation Note: Mrs. De Los Santos is a 58-year-old woman with a past medical history of HIV, Chronic Hep C, HTN, COPD, polysubstance abuse, Paranoid Schizophrenia who presented to the ED for left facial droop and difficulty with ambulation. According to the patient, the facial droop has been present for over 7 years. She states that she fell in the bathtub after she slipped. She complained of shortness of breath and fatigue. She did not have any other neurological complaints. MRI brain showed chronic changes, no acute findings. Review of Systems - Review of Systems All systems: reviewed and no additional remarkable complaints except Past Patient History - Infectious Disease Hx of Infectious Diseases: None - Past Medical History & Family History Past Medical History?: Yes - Past Social History Smoking Status: Light Smoker < 10 Cigarettes Daily - CARDIAC Hx Cardiac Disorders: Yes - PULMONARY Hx Respiratory Disorders: Yes - NEUROLOGICAL Hx Neurological Disorder: Yes - HEENT Hx HEENT Problems: No - RENAL Hx Chronic Kidney Disease: No - ENDOCRINE/METABOLIC Hx Endocrine Disorders: No - HEMATOLOGICAL/ONCOLOGICAL Hx Blood Disorders: Yes - INTEGUMENTARY Hx Dermatological Problems: No - MUSCULOSKELETAL/RHEUMATOLOGICAL Hx Musculoskeletal Disorders: No - GASTROINTESTINAL Hx Gastrointestinal Disorders: No - GENITOURINARY/GYNECOLOGICAL Hx Genitourinary Disorders: No - PSYCHIATRIC Hx Psychophysiologic Disorder: Yes - SURGICAL HISTORY Hx Surgeries: No Hx Section: Yes (x2) - ANESTHESIA Hx Anesthesia: Yes Hx Anesthesia Reactions: No Hx Malignant Hyperthermia: No Meds Allergies/Adverse Reactions: Allergies Allergy/AdvReac Type Severity Reaction Status Date / Time crab Allergy SWELLING Verified 03/16/18 14:42 - Medications Medications: Current Medications Albuterol (Ventolin Hfa 90 Mcg/Actuation (8 G)) 2 puff IH Q4 PRN PRN Reason: Shortness of Breath Alprazolam (Xanax) 2 mg PO Q8 PRN PRN Reason: Anxiety Amlodipine Besylate (Norvasc) 10 mg PO DAILY [facility] Last Admin: 03/17/18 08:52 Dose: 10 mg Aspirin (Aspirin Chewable) 81 mg PO DAILY [facility] Last Admin: 03/17/18 08:50 Dose: 81 mg Atorvastatin Calcium (Lipitor) 40 mg PO DAILY [facility] Last Admin: 03/17/18 08:51 Dose: 40 mg Clonidine HCl (Catapres) 0.1 mg PO Q8 [facility] Last Admin: 03/17/18 08:53 Dose: 0.1 mg Darunavir (Prezista) 800 mg PO DAILY [facility] PRN Reason: Protocol Last Admin: 03/17/18 08:52 Dose: 800 mg Enoxaparin Sodium (Lovenox) 40 mg SC DAILY [facility] PRN Reason: Protocol Last Admin: 03/17/18 08:51 Dose: 40 mg Sodium Chloride (Sodium Chloride 0.9%) 1,000 mls @ 100 mls/hr IV .Q10H [facility] Last Admin: 03/17/18 00:35 Dose: 100 mls/hr Paliperidone Palmitate (Invega Sustenna) 156 mg IM Q30D [facility] Raltegravir (Isentress) 400 mg PO Q12 [facility] PRN Reason: Protocol Last Admin: 03/17/18 08:50 Dose: 400 mg Ritonavir (Norvir) 100 mg PO DAILY [facility] Last Admin: 03/17/18 08:52 Dose: 100 mg Physical Exam - Neurological Exam Neurological exam: Abnormal Gait, CN II-XII Intact, Oriented x3, Reflexes Normal Additional comments: Left side CN 7 palsy. Otherwise, CN 2-12 are intact Generalized bradyphrenia and weakness. No focal neurological deficits. Results - Vital Signs Recent Vital Signs: Last Vital Signs Temp 98.0 F 03/17/18 12:16 Pulse 72 03/17/18 12:16 Resp 20 03/17/18 12:16 BP 141/84 03/17/18 12:16 Pulse Ox 95 03/17/18 12:16 - Labs Result Diagrams: 03/16/18 15:45 03/16/18 15:45 Labs: Laboratory Results - last 24 hr 03/16/18 03/16/18 03/16/18 15:45 15:45 15:45 WBC 5.8 RBC 3.87 Hgb 12.1 Hct 36.5 MCV 94.2 MCH 31.2 H MCHC 33.1 RDW 13.7 Plt Count 149 MPV 7.8 Neut % (Auto) 47.5 L Lymph % (Auto) 39.5 [place] % (Auto) 9.4 Eos % (Auto) 3.2 Baso % (Auto) 0.4 Neut # (Auto) 2.8 Lymph # (Auto) 2.3 [place] # (Auto) 0.5 Eos # (Auto) 0.2 Baso # (Auto) 0.0 PT INR APTT Sodium 140 Potassium 3.5 L Chloride 104 Carbon Dioxide 30 Anion Gap 10 BUN 17 Creatinine 0.8 Est GFR ( Amer) > 60 Est GFR (Non-Af Amer) > 60 Random Glucose 97 Hemoglobin A1c 5.6 Calcium 10.5 H Total Bilirubin 0.7 AST 52 H D ALT 50 Alkaline Phosphatase 106 Troponin I < 0.0120 Total Protein 7.6 Albumin 3.7 Globulin 3.9 Albumin/Globulin Ratio 0.9 L Triglycerides 185 H Cholesterol 158 LDL Cholesterol Direct 56 HDL Cholesterol 52 Urine Opiates Screen Urine Methadone Screen Ur Barbiturates Screen Ur Phencyclidine Scrn Ur Amphetamines Screen U Benzodiazepines Scrn U Oth Cocaine Metabols U Cannabinoids Screen Alcohol, Quantitative < 10 Blood Type Antibody Screen BBK History Checked 03/16/18 03/16/18 03/16/18 15:45 15:45 16:10 WBC RBC Hgb Hct MCV MCH MCHC RDW Plt Count MPV Neut % (Auto) Lymph % (Auto) [place] % (Auto) Eos % (Auto) Baso % (Auto) Neut # (Auto) Lymph # (Auto) [place] # (Auto) Eos # (Auto) Baso # (Auto) PT 10.4 INR 0.9 APTT 34.6 Sodium Potassium Chloride Carbon Dioxide Anion Gap BUN Creatinine Est GFR ( Amer) Est GFR (Non-Af Amer) Random Glucose Hemoglobin A1c Calcium Total Bilirubin AST ALT Alkaline Phosphatase Troponin I Total Protein Albumin Globulin Albumin/Globulin Ratio Triglycerides Cholesterol LDL Cholesterol Direct HDL Cholesterol Urine Opiates Screen Positive H Urine Methadone Screen Negative Ur Barbiturates Screen Negative Ur Phencyclidine Scrn Negative Ur Amphetamines Screen Negative U Benzodiazepines Scrn Positive U Oth Cocaine Metabols Negative U Cannabinoids Screen Positive H Alcohol, Quantitative Blood Type O POSITIVE Antibody Screen Negative BBK History Checked No verified bt Assessment & Plan (1) Dysarthria Assessment and Plan: Likely due to chronic facial droop and medication effect. MRI does not show any concerning findings. No further neurological work-up is recommended. Thank you. Status: Acute (2) Facial weakness Status: Acute (3) Narcotic abuse Status: Acute (4) HIV (human immunodeficiency virus infection) Status: Chronic
[2018-03-17 15:39] VITALS: BP 125/74; TEMP 98.4; O2SAT 94
[2018-03-17 16:14] VITALS: PULSE 73
[2018-03-18 15:03] LABS: % CD4 (T HELPER CELL) 18 Percent (30-61); % CD8 (SUPPRESSOR T CELL) 53 Percent (12-42); ABSOLUTE CD4 CELLS 333 Cells/mcL (490-1740); ABSOLUTE CD8 CELLS 990 Cells/mcL (180-1170); ABSOLUTE LYMPHOCYTES 1857 Cells/mcL (850-3900); HELPER/SUPPRESSOR RATIO 0.34 Ratio (0.86-5.00)
== END 2018-03-17 17:20 | disposition home or self-care (01) ==
LOC: H.ER 14:35 → H.ERHOLD 20:55 → H.TEL 22:52
PROVIDERS: ADMIT Family Medicine Geriatric Medicine; ATTEND Family Medicine Geriatric Medicine
DX: R47.1 Dysarthria and anarthria (principal); R29.810 Facial weakness; Z21 Asymptomatic human immunodeficiency virus [HIV] infection status; F11.10 Opioid abuse, uncomplicated; B18.2 Chronic viral hepatitis C; F20.0 Paranoid schizophrenia; F32.9 Major depressive disorder, single episode, unspecified; I10 Essential (primary) hypertension; J45.30 Mild persistent asthma, uncomplicated; F41.9 Anxiety disorder, unspecified; J44.9 Chronic obstructive pulmonary disease, unspecified; F17.210 Nicotine dependence, cigarettes, uncomplicated; Z79.82 Long term (current) use of aspirin
CPT/HCPCS: 70450; 70551; 71045; 72125; 73502; 80053; 80061; 80320; 80324; 80345; 80346; 80349; 80353; 80358; 80361; 83036; 83970; 83992; 84484; 85025; 85610; 85730; 86039; 86360; 86618; 86695; 86696; 86850; 86900; 93005; 97162; 97165; 99285; G0378; G8978; G8979; G8987; G8988; J1650; J2426; J7030